=== PATIENT | female | born 1960 | race Caucasian/White ===

== ENCOUNTER 2017-05-14 12:20 | Emergency (ER) | payer MEDICAID, OTHER ==
[~2017-05-14] VITALS: Ht 157.5 cm; Wt 78.0 kg
[~2017-05-14 12:20] MED LIST: DICL100T2 PO; FURO-572 PO; IBUP-974 PO; LISI-420 PO; TRAM50TA1 PO; [UNRECOGNIZED DRUG - CODE] PO
[2017-05-14 12:23] VITALS: BP 194/95
--- NOTE | 2017-05-14 12:46 | NUR ---
PATIENT IS A 56 YO FEMALE BIB EMS FROM A MARKET FOR SLIP AND FALL WITH RIGHT KNEE PAIN TO A WHEELCHAIR IN LOBBY.
--- NOTE | 2017-05-14 19:05 | NUR ---
PT W/C ASSITED TO [facility].
[2017-05-14] MEDS ORDERED: ACETAMINOPHEN EXTRA STRENGTH 500 MG TAB PO ONE (20:10)
[2017-05-14 20:48] VITALS: BP 132/73
--- NOTE | 2017-05-14 20:48 | NUR ---
Patient discharged with v/s stable. Written and verbal after care instructions given and explained. Patient alert, oriented and verbalized understanding of instructions. Ambulatory with steady gait. All questions addressed prior to discharge. ID band removed. Patient advised to follow up with PMD. Rx of [place] and ibuprofen given. Patient educated on indication of medication including possible reaction and side effects. Opportunity to ask questions provided and answered.
== END 2017-05-14 20:48 | disposition home or self-care (01) ==
LOC: MED 12:20
DX: S83.91XA Sprain of unspecified site of right knee, initial encounter (principal); S93.401A Sprain of unspecified ligament of right ankle, initial encounter; Z95.0 Presence of cardiac pacemaker; W18.30XA Fall on same level, unspecified, initial encounter; Y93.89 Activity, other specified; Y92.89 Other specified places as the place of occurrence of the external cause; Y99.8 Other external cause status
CPT/HCPCS: 29515; 73562; 73610; 99284

== ENCOUNTER 2019-12-02 13:06 | Emergency (ER) | payer MEDICAID ==
[~2019-12-02] VITALS: Ht 157.5 cm; Wt 84.8 kg
[2019-12-02 13:19] VITALS: BP 124/67
[2019-12-02 14:47] VITALS: BP 122/60
== END 2019-12-02 14:48 | disposition home or self-care (01) ==
LOC: MED 13:06
DX: U07.1 COVID-19 (principal); I10 Essential (primary) hypertension; Z79.899 Other long term (current) drug therapy; Z95.0 Presence of cardiac pacemaker
CPT/HCPCS: 71045; 99284; U0003

== ENCOUNTER 2019-12-20 09:56 | Emergency (ER) | payer MEDICAID ==
[~2019-12-20] VITALS: Ht 160 cm; Wt 74.8 kg
[2019-12-20 10:01] VITALS: BP 138/74
--- NOTE | 2019-12-20 10:01 | NUR ---
PT PRESENTS WITH NO C/C, DENIES CHEST PAIN,SOB,PAIN,COUGH. PER PT TOLD BY PCP TO COME TO ER TO GET TESTED FOR SECOND TIME FOR COVID. PT CONCERNED ABOUT GETTING TEST DONE. PT CONFIRMED POSITIVE 01 DECEMBER. VSS,EUPNIC,AMBULATORY,A/OX4. HX HTN,ARTHRITIS
--- NOTE | 2019-12-20 10:01 | NUR ---
PT IN TENT
--- NOTE | 2019-12-20 10:30 | NUR ---
COVID SWAB DONE ; TAKEN TO LAB
[2019-12-20 11:03] VITALS: BP 132/70
--- NOTE | 2019-12-20 11:03 | NUR ---
Patient discharged with v/s stable. Written and verbal after care instructions given and explained. Patient verbalized understanding. Ambulatory with steady gait. All questions addressed prior to discharge. Advised to follow up with PMD.
== END 2019-12-20 11:03 | disposition home or self-care (01) ==
LOC: MED 09:56
DX: U07.1 COVID-19 (principal)
CPT/HCPCS: 99283; U0003